=== PATIENT | male | born 1965 | race Caucasian/White ===

== ENCOUNTER 2017-09-15 20:05 | Inpatient (IN) | payer OTHER ==
[~2017-09-15] VITALS: Ht 182.9 cm; Wt 78.8 kg
--- NOTE | ~2017-09-15 | TEE ---
[facility] [place] [address] TRANSESOPHAGEAL ECHOCARDIOGRAM Name: MARINA MCHUGH Room #: 426-P [facility] IN [facility]#: [id number] Admission: 09/15/17 Attend Phys: Andrae Orr MD Discharge: Date of : 63 Date of Service: 09/20/17 0857 Report #: [id number] THIS REPORT FOR: //name// APPROVED REPORT Study performed: 09/20/2017 08:59:16 EXAM: Comprehensive 2D, Doppler, and color-flow Echocardiogram Patient Location: [facility] Room #: [facility] Status: routine BSA: 2.00 HR: 87 bpm BP: 129/86 mmHg Rhythm: NSR Other Information Study Quality: Good Echo Enhancing Agent Indication: Rule out Shunt Agent(s) / Amount(s) Used: Agitated Saline 6 cc Procedure After obtaining informed consent, patient underwent transesophageal echo in the [employer]. Type of Sedation : Conscious Sedation Sedation was administered by Loli Abdalla RN. Versed (3) Fentanyl (50) Transesophageal probe was inserted and advanced into esophagus without difficulty by Daniel Adkins MD. The ISA was performed without complications. Throughout the procedure, the blood pressure, pulse oximetry, cardiac rhythm, and rate were monitored. The patient tolerated the procedure without adverse effects. Recovery from conscious sedation was uneventful and vital signs were stable. Left Ventricle The left ventricle is normal size. There is normal LV segmental wall motion. There is normal left ventricular wall thickness. Left ventricular systolic function is normal. No left ventricle thrombus noted on this study. LVEF is 55-60%. [facility] [place] [address] TRANSESOPHAGEAL ECHOCARDIOGRAM Name: MARINA MCHUGH Room #: 426-P [facility] IN [facility]#: [id number] Admission: 09/15/17 Attend Phys: Andrae Orr MD Discharge: Date of : 63 Date of Service: 09/20/17 0857 Report #: [id number] Right Ventricle The right ventricle is normal size. There is normal right ventricular wall thickness. The right ventricular systolic function is normal. Atria The left atrium size is normal. No thrombus in the left atrium or appendage. No shunting noted by contrast bubble study. The right atrium size is normal. Aortic Valve The aortic valve is normal in structure. No aortic regurgitation is present. There is no aortic valvular stenosis. Mitral Valve The mitral valve is normal in structure. Mild mitral regurgitation. Tricuspid Valve The tricuspid valve is normal in structure. There is no tricuspid valve regurgitation noted. Pulmonic Valve The pulmonary valve is normal in structure. Great Vessels The aortic root is normal in size. The ascending aorta is normal in size. Pericardium There is no pericardial effusion. <Conclusion> Left ventricular systolic function is normal. LVEF is 55-60%. Normal LV segmental wall motion. No thrombus in the left atrium or appendage. No shunting noted by contrast bubble study. The aortic valve is normal in structure. No aortic valvular stenosis or insufficiency The mitral valve is normal in structure. Mild mitral regurgitation. [facility] [place] [address] TRANSESOPHAGEAL ECHOCARDIOGRAM Name: LOLITAMARINA Room #: 426-P [facility] IN .R.#: [id number] Admission: 09/15/17 Attend Phys: Andrae Orr MD Discharge: Date of : 63 Date of Service: 09/20/17 0857 Report #: [id number] Normal tricuspid valve No pericardial effusion. Normal aorta <ELECTRONICALLY SIGNED> By: Daniel Adkins MD, [facility] 09/20/1757 6 Daniel Adkins MD, [facility] /INF
--- NOTE | ~2017-09-15 | EKG ---
[address] [address] ELECTROCARDIOGRAM REPORT Name: MARINA MCHUHG Nelson Room #: 426-P ADM IN M.R.#: [id number] Admission: 09/15/17 Attend Phys: Andrae Orr MD Discharge: Date of : 63 Report #: [id number] THIS REPORT FOR: //name// [facility] ED Test Date: 2017-09-15 Test Time: 21:48:33 Pat Name: MARINA MCHUGH Department: Room: 426 Gender: M Care Services Manager: NACHO : 1965 Requested By: Leydi Almaraz Order Number: [id number] MD: Daniel Adkins Measurements Intervals [place] Rate: 121 P: 32 IN: 147 QRS: -6 QRSD: 95 T: 55 QT: 296 QTc: 420 Interpretive Statements Sinus tachycardia Baseline wander in lead(s) V1 Compared to ECG 07/10/2007 07:40:17 Sinus rhythm no longer present Poor R-wave progression no longer present Electronically Signed On 09-16-2017 9:07:59 SENIOR DATA SCIENTIST by Daniel Adkins [email or web address] <ELECTRONICALLY SIGNED> By: Daniel Adkins MD, [facility] 09/16/17 0907 2148 Daniel Adkins MD, [facility] /EPI
--- NOTE | ~2017-09-15 | EEG ---
[facility] [place] [address] ELECTROENCEPHALOGRAM Name: MARINA MCHUGH Room #: 426-P [facility] IN M.R.#: [id number] Admission: 09/15/17 Attend Phys: Andrae Orr MD Discharge: 09/21/17 Date of : 63 Report #: [id number] THIS REPORT FOR: //name// CC: Andrae Orr [facility] physician/PCP DATE OF SERVICE: 09/17/2017 This patient has altered mental status. EEG was done by placing the electrodes by standard 10-20 system of electrode placement. Both referential and sequential montages were used for recording. Background activity in this patient's EEG is about 11 Hz and 40 microvolt. This patient went to sleep, that is also associated with bilaterally symmetrical sleep spindle and vertex sharp waves. Photic stimulation was unremarkable. Throughout the record, no active epileptiform activity was noticed. IMPRESSION: This patient's electroencephalogram is within normal limits. Thank you very much for this referral. <ELECTRONICALLY SIGNED> By: David Cochran MD 09/26/17 1816 1452 1614 David Cochran MD /nt
--- NOTE | ~2017-09-15 | 2DMMODE ---
[facility] [address] [place] [address] 2 D/M-MODE ECHOCARDIOGRAM Name: LOILTAMARINA Room #: 426-P [facility] IN .R.#: [id number] Admission: 09/15/17 Attend Phys: Andrae Orr MD Discharge: Date of : 63 Date of Service: 09/16/17 1050 Report #: [id number] THIS REPORT FOR: //name// APPROVED REPORT Study performed: 09/16/2017 09:59:50 EXAM: Comprehensive 2D, Doppler, and color-flow Echocardiogram Patient Location: Echo lab Room #: 426 Status: routine BSA: 1.99 HR: 86 bpm BP: 158/94 mmHg Other Information Study Quality: Good Indications CVA/TIA Diabetes Hypertension/HDD Echo Enhancing Agent Indication: Rule out Shunt Agent(s) / Amount(s) Used: Agitated Saline 7 cc 2D Dimensions RVDd: 30.94 mm LVEF(%): 55.76 (>50%) IVSd: 10.36 (7-11mm) LVOT Diam: 18.14 (18-24mm) LVDd: 41.15 mm PWd: 10.33 (7-11mm) Ascending Ao: 30.70 (22-36mm) LVDs: 29.33 (25-40mm) Aortic Root: 29.31 mm Avendano's LVEF: 55.76 % Volumes Left Atrial Volume (Systole) Single Plane 4CH: 24.42 mL Single Plane 2CH: 27.87 mL LA ESV Index: 15.00 mL/m2 Aortic Valve AoV Peak Sabas.: 1.47 m/s AO Peak Gr.: 8.69 mmHg LVOT Max P.24 mmHg LVOT Max V: 1.03 m/s [facility] [place] [address] 2 D/M-MODE ECHOCARDIOGRAM Name: MARINA MCHUGH Room #: 426-P [facility] IN M.R.#: [id number] Admission: 09/15/17 Attend Phys: Andrae Orr MD Discharge: Date of : 63 Date of Service: 09/16/17 1050 Report #: [id number] SANDY Vmax: 1.80 cm2 Mitral Valve E/A Ratio: 0.8 MV Decel. Time: 181.66 ms MV E Max Sabas.: 0.62 m/s MV A Sabas.: 0.79 m/s MV PHT: 52.68 ms IVRT: 129.18 ms Pulmonary Valve PV Peak Sabas.: 0.86 m/s PV Peak Gr.: 2.99 mmHg Pulmonary Vein P Vein S: 0.62 m/s P Vein A: 0.23 m/s P Vein D: 0.44 m/s P Vein A Dur.: 101.5 msec P Vein S/D Ratio: 1.41 Left Ventricle The left ventricle is normal size. There is normal LV segmental wall motion. There is normal left ventricular wall thickness. The left ventricular systolic function is normal. The left ventricular ejection fraction is within the normal range. LVEF is 55-60%. Grade I - abnormal relaxation pattern. Right Ventricle The right ventricle is normal size. The right ventricular systolic function is normal. Atria The left atrium size is normal. Interatrial septum is intact without evidence of ASD or PFO. The right atrium size is normal. Aortic Valve The aortic valve is normal in structure. No aortic regurgitation is present. There is no aortic valvular stenosis. Mitral Valve The mitral valve is normal in structure. Trace mitral regurgitation. No evidence of mitral valve stenosis. Tricuspid Valve The tricuspid valve is normal in structure. There is no tricuspid valve stenosis. There is no tricuspid valve regurgitation noted. [address] [address] 2 D/M-MODE ECHOCARDIOGRAM Name: MARINA MCHUGH Room #: 426-P [facility] IN [facility]#: [id number] Admission: 09/15/17 Attend Phys: Andrae Orr MD Discharge: Date of : 63 Date of Service: 09/16/17 1050 Report #: [id number] Pulmonic Valve The pulmonary valve is normal in structure. There is no pulmonic valvular regurgitation. Great Vessels The aortic root is normal in size. The inferior vena cava is not well visualized. Pericardium There is no pericardial effusion. <Conclusion> The left ventricle is normal size. LVEF is 55-60%. Interatrial septum is intact without evidence of ASD or PFO. The aortic valve is normal in structure. The mitral valve is normal in structure. Trace mitral regurgitation. The tricuspid valve is normal in structure. The pulmonary valve is normal in structure. The aortic root is normal in size. <ELECTRONICALLY SIGNED> By: Kermit Mack MD 09/16/17 [phone] Kermit Mack MD /INF
--- NOTE | ~2017-09-15 | HC ---
[facility] [place] [address] CONSULTATION Name: MARINA MCHUGH Room #: 426-P [facility] IN .R.#: [id number] Admission: 09/15/17 Attend Phys: Andrae Orr MD Discharge: 09/21/17 Date of : 63 Report #: [id number] THIS REPORT FOR: //name// CC: Andrae Orr [facility] physician/PCP DATE OF SERVICE: 09/20/2017 HISTORY OF PRESENT ILLNESS: The patient is a 52-year-old white male admitted with acute mental status changes, restlessness, decreased short term memory. This has been going on for about 3 days prior to admission. He was seen by Neurology and CT did reveal a CVA with left medial temporal and occipital areas. This was noted to be a large infarct. The patient is to undergo a ISA. We are seeing him in rehabilitation medicine consultation. PAST MEDICAL HISTORY: Includes a prior CVA with left upper extremity weakness that was relatively mild. He has a history of being hearing impaired, hypertension, hyperlipidemia, diabetes mellitus type 2. HABITS: No history of tobacco or alcohol abuse. ALLERGIES: PENICILLIN. FAMILY HISTORY: Noncontributory. SOCIAL HISTORY: House with his father, 2 steps in with 12 inside. Father apparently can provide supervision, although it sounds like the patient was needing a lot of supervision and assistance premorbidly. PHYSICAL EXAMINATION: GENERAL: A 52-year-old white male, slender build no obvious distress. VITAL SIGNS: Last recorded temperature is 98.2, pulse 86, respirations 18, blood pressure 143/86. HEENT: Facies are symmetric. EXTREMITIES: He has functional range of motion of both upper extremities. Strength appeared to be a grade 4+/5. DTRs are trace to 1. Lower extremities, no focal calf swelling, functional range of motion with strength appearing to be at least a grade 4+ to 5-/5. DTRs are trace to 1. He does have decreased short term memory and speech therapy notes that he has severe cognitive deficits with severe memory deficits. Tone appeared to be intact. There was no clonus. In physical therapy, he has been ambulatory except for path finding and physical therapy has actually discharged him. ASSESSMENT: A 52-year-old white male with the following problems: 1. Medial left temporal and occipital lobe, large infarct. 2. Severe cognitive deficits. [address] [address] CONSULTATION Name: MARINA MCHUGH Room #: 426-P [facility] IN .R.#: [id number] Admission: 09/15/17 Attend Phys: Andrae Orr MD Discharge: 09/21/17 Date of : 63 Report #: [id number] 3. Severe memory deficits. 4. Path finding warranted when up for functional mobility. 5. Premorbid history of a CVA with some upper extremity weakness, which is relatively mild. 6. Hearing impaired. 7. Hypertension. 8. Hyperlipidemia. PLAN: Workup is underway as noted above. He is to have a ISA today. Physical therapy has actually discharged him, as he has been ambulatory except for supervision for path finding. He does have severe memory and severe cognitive deficits. Insurance will need to be checked regarding rehab therapy issues as he further stabilizes. I agree that he is going to need supervision at this point and I am uncertain if the father can continue to provide that or not. We will be glad to follow along with you regarding his rehab therapy needs. Insurance will need to be checked and case management will further assist as well. <ELECTRONICALLY SIGNED> By: Goyo Delong MD 09/26/17 1509 1048 1305 Goyo Delong MD /[facility]
--- NOTE | ~2017-09-15 | HC ---
[facility] [place] [address] CONSULTATION Name: MARINA MCHUGH Room #: 426-P [facility] IN .R.#: [id number] Admission: 09/15/17 Attend Phys: Andrae Orr MD Discharge: 09/21/17 Date of : 63 Report #: [id number] THIS REPORT FOR: //name// CC: Andrae Orr [facility] physician/PCP DATE OF SERVICE: 09/16/2017 HISTORY OF PRESENT ILLNESS: This is a 52-year-old male patient who was seen by me for confusion of about 3 days' duration. It started spontaneously without any trauma and the confusion is severe. Apparently, this is not usual for the patient. He is deaf. He is adopted. He can hear some with a hearing aid. He had this confusion. He had a CT and MRI, which confirmed that this patient had a CVA in the left temporal occipital area. He does not have a classical hemianopsia. REVIEW OF SYSTEMS: Indicate that in the hospital, the patient's blood pressure is high and his blood sugar is high. According to the nurses and my examination, he is very confused. He had some vomiting earlier. Otherwise, a 14-point review of systems was carried out and was mostly noncontributory. PAST MEDICAL HISTORY: Negative for any stroke clinically, but his MRI does appear to be showing multiple strokes. FAMILY HISTORY: Unavailable because he is adopted. SOCIAL HISTORY: He does not smoke or drink any alcohol. PHYSICAL EXAMINATION: Indicate that this patient is alert, but he is confused. He does not know what month it is, what day it is and what hospital he is in. He is able to name the president, but his memory is pretty significantly diminished. Cranial nerve examination 2-12 mostly looks unremarkable. I did not see any dense hemianopsia. His strength, sensation, reflexes and tones are symmetrical. He does not appear to be in atrial fibrillation. He has no respiratory difficulty or rhonchi. He has no edema, cyanosis or jaundice. Blood pressure is 140/83, respirations 18, pulse 95, temperature is 98. LABORATORY DATA: His white count is 11.5 and his blood sugar was high when he came in. IMPRESSION: 1. Cerebrovascular accident. 2. Diabetes. 3. Hypertension. RECOMMENDATION: This patient has somewhat of an unusual configuration. He has [facility] [address] [place] [address] CONSULTATION Name: MARINA MCHUGH Room #: 426-P [facility] IN .R.#: [id number] Admission: 09/15/17 Attend Phys: Andrae Orr MD Discharge: 09/21/17 Date of : 63 Report #: [id number] a stroke in the left posterior cerebral artery distribution and his left posterior cerebral artery is patent. Because of that, an extensive workup to rule out the possibility of embolization should be undertaken. That workup will consist of 30 days event monitor, a possible ISA depending upon the results of his regular echocardiogram and extensive workup for the blood workup as ordered. I discussed all of it with the patient and the father. I talked to the nurses looking after this patient. More than 50 minutes of time was spent taking care of this patient today and majority of that time was spent counseling the patient and the father. Thank you very much for this referral. <ELECTRONICALLY SIGNED> By: David Cochran MD 09/26/17 1815 1808 0537 David Cochran MD /nt
[2017-09-15 20:10] VITALS: BP 177/117
[2017-09-15 21:49] LABS: ABSOLUTE NEUTROPHILS 9.1 thou/uL (1.4-8.2); BASOPHILS 0.4 % (0.0-2.0); EOSINOPHILS 0.2 % (0.0-3.0); HEMATOCRIT 51.1 % (42.0-52.0); HEMOGLOBIN 17.8 gm/dL (14.0-18.0); LYMPHOCYTES 13.4 % (24.0-44.0); MCH 28.8 pg (26.0-34.0); MCHC 34.8 g/dL (28.0-37.0); MCV 82.6 fL (80.0-100.0); MONOCYTES 6.6 % (1.0-8.0); PLATELET COUNT 195 thou/uL (150-400); POLYS 79.4 % (36.0-66.0); RBC 6.18 mil/uL (4.50-6.00); RDW 13.5 % (10.5-14.5); WBC 11.5 thou/uL (4.0-11.0)
[2017-09-15 21:58] LABS: ANION GAP 8 mmol/L (7-16); BUN 16 mg/dL (7-18); CALCIUM 10.6 mg/dL (8.5-10.1); CHLORIDE 101 mmol/L (98-107); CO2 29 mmol/L (21-32); GLUCOSE 300 mg/dL (74-106); POTASSIUM 3.9 mmol/L (3.5-5.1); SODIUM 138 mmol/L (136-145)
[2017-09-15 22:15] LABS: DIGOXIN < 0.2 ng/mL (0.9-2.0)
[2017-09-15 22:45] LABS: URINE BILIRUBIN NEGATIVE (Negative); URINE BLOOD NEGATIVE (Negative); URINE CLARITY SL CLOUDY; URINE COLOR YELLOW; URINE GLUCOSE-RANDOM* 3+ (Negative); URINE KETONES 1+ (Negative); URINE LEUKOCYTES-REFLEX NEGATIVE (Negative); URINE NITRITE-REFLEX NEGATIVE (Negative); URINE PROTEIN (DIPSTICK) NEGATIVE (Negative); URINE UROBILINOGEN 0.2 E.U./dl (0.2-1.0)
[2017-09-15 23:52] VITALS: BP 157/92
[2017-09-16] MEDS ORDERED: METFORMIN HCL500 MG PO (00:19)
[2017-09-16] MEDS ORDERED: LANOXIN 0.120.125 M1 PO (00:19)
[2017-09-16] MEDS ORDERED: PRILOSEC 20 MG20 MG PO (00:20)
[2017-09-16 00:24] VITALS: BP 168/99
[2017-09-16 05:27] VITALS: BP 158/94
[2017-09-16 07:05] VITALS: BP 144/91
[2017-09-16 08:18] LABS: HEMATOCRIT 44.6 % (42.0-52.0)
[2017-09-16 08:22] LABS: HEMOGLOBIN 15.1 gm/dL (14.0-18.0)
[2017-09-16] MEDS ORDERED: LIPITOR10 MG PO (08:55)
[2017-09-16] MEDS ORDERED: LEVEMIR SUBQ (08:56)
[2017-09-16] MEDS ORDERED: ZESTRIL20 MG PO (08:56)
[2017-09-16 14:27] LABS: HEMATOCRIT 44.5 % (42.0-52.0); HEMOGLOBIN 15.2 gm/dL (14.0-18.0)
[2017-09-16 15:00] VITALS: BP 140/83
[2017-09-16 19:12] VITALS: BP 148/90
[2017-09-16 20:28] LABS: HEMATOCRIT 43.7 % (42.0-52.0); HEMOGLOBIN 15.2 gm/dL (14.0-18.0)
[2017-09-17 02:22] LABS: HEMATOCRIT 44.7 % (42.0-52.0); HEMOGLOBIN 15.4 gm/dL (14.0-18.0)
[2017-09-17 03:30] LABS: CHOLESTEROL 96 mg/dL (<200); HDL CHOLESTEROL 34 mg/dL (>40); LDL CHOLESTEROL 37 mg/dL (<100); SERUM ASSESSMENT Clear; TC:HDL 2.8 Ratio (Not establshd); TRIGLYCERIDE 125 mg/dL (<150); VLDL 25 mg/dL (<40)
[2017-09-17 03:50] LABS: TSH 0.359 uIU/mL (0.358-3.740)
[2017-09-17 04:23] VITALS: BP 138/95
[2017-09-17 08:00] VITALS: BP 149/95
[2017-09-17 16:00] VITALS: BP 147/101
[2017-09-17 20:00] VITALS: BP 148/92
[2017-09-18 02:05] LABS: GLYCOHEMOGLOBIN (HGB A1C) 8.7 % (4.8-5.6)
[2017-09-18 04:34] VITALS: BP 145/71
[2017-09-18 08:36] VITALS: BP 158/84
[2017-09-18 16:03] VITALS: BP 182/93
[2017-09-18 20:02] VITALS: BP 165/99
[2017-09-19 04:08] VITALS: BP 151/98
[2017-09-19 09:00] VITALS: BP 131/88
[2017-09-19 15:45] VITALS: BP 128/73
[2017-09-19 19:04] VITALS: BP 147/97
[2017-09-20 04:20] VITALS: BP 129/86
[2017-09-20 09:41] VITALS: BP 143/86
[2017-09-20 16:00] VITALS: BP 117/84
[2017-09-20 19:27] VITALS: BP 11/56; BP 123/78
[2017-09-21 03:59] VITALS: BP 114/75
[2017-09-21] MEDS ORDERED: ASA5UEC PO (11:42)
[2017-09-21 12:42] VITALS: BP 114/75
[2017-09-21] MEDS ORDERED: PANTOPRAZOLE SO40 M1 PO (13:30)
[2017-09-21] MEDS ORDERED: PLAVIX 75 MG TA75 MG PO (13:30)
[2017-09-21 13:33] VITALS: BP 114/75
[2017-09-21] MEDS ORDERED: LEVEMIR SUBQ (16:17)
== END 2017-09-21 17:03 | disposition home health service (06) | DRG 65 ==
LOC: ER 20:05 → 4E 22:41 → EROBS 22:41 → 4E 09-16 00:21
PROVIDERS: Emergency Medicine; Internal Medicine; Nurse Practitioner Acute Care; Psychiatry & Neurology Neuromuscular Medicine
PROC: B24BZZ4 Ultrasonography of Heart with Aorta, Transesophageal (ICD-10-PCS; principal; 2017-09-20)
DX: I63.9 Cerebral infarction, unspecified (principal); D68.59 Other primary thrombophilia; I10 Essential (primary) hypertension; E11.9 Type 2 diabetes mellitus without complications; K21.9 Gastro-esophageal reflux disease without esophagitis; H91.90 Unspecified hearing loss, unspecified ear; E78.5 Hyperlipidemia, unspecified; R41.3 Other amnesia; Z86.73 Personal history of transient ischemic attack (TIA), and cerebral infarction without residual deficits; Z79.4 Long term (current) use of insulin; Z79.84 Long term (current) use of oral hypoglycemic drugs; Z79.899 Other long term (current) drug therapy; Z88.0 Allergy status to penicillin
CPT/HCPCS: 10183